=== PATIENT | male | born 1970 | race Two or more races ===

== ENCOUNTER 2019-07-04 08:58 | Emergency (ER) | payer BC, OTHER ==
[~2019-07-04] VITALS: Ht 182.9 cm; Wt 102.1 kg
[2019-07-04] MEDS ORDERED: ALBUTEROL FS 2.5 MG/3 ML VIAL.NEB NEB ONE (10:00)
[2019-07-04] MEDS ORDERED: IPRATROPIUM NEB FS 0.5 MG/2.5 ML AMPUL.NEB NEB ONE (10:00)
[2019-07-04 10:11] VITALS: BP 157/89
--- NOTE | 2019-07-04 10:13 | NUR ---
Pt states "feel better- breathing easier" for discherge Patient discharged to home in stable condition. Written and verbal after care instructions given. Patient verbalizes understanding of instruction.
== END 2019-07-04 10:12 | disposition home or self-care (01) ==
LOC: ER 09:01
DX: J98.01 Acute bronchospasm (principal); I10 Essential (primary) hypertension; Z98.890 Other specified postprocedural states; Z88.1 Allergy status to other antibiotic agents